=== PATIENT | male | born 1980 | race American Indian/Alaskan Native ===

== ENCOUNTER 2019-11-29 14:31 | Emergency (ER) | payer SELFPAY ==
--- NOTE | 2019-11-29 17:36 | XRay Report ---
CHEST 2 VIEWS INDICATION / CLINICAL INFORMATION: cough. COMPARISON: None available. FINDINGS: SUPPORT DEVICES: None. HEART / MEDIASTINUM: No significant abnormality. LUNGS / PLEURA: No significant pulmonary or pleural abnormality. No pneumothorax. ADDITIONAL FINDINGS: No significant additional findings. IMPRESSION: 1. No acute findings. Signer Name: Apple Robbins MD Signed: 11/29/2019 5:31 PM Workstation Name: [id number]
[2019-11-29 18:29] VITALS: BP 164/92
--- NOTE | 2019-11-29 18:34 | Emergency Department Report ---
- General Chief Complaint: Upper Respiratory Infection Stated Complaint: FEVER/SWEATING/HEADACHE Time Seen by Provider: 11/29/19 17:45 Source: patient Mode of arrival: Ambulatory Limitations: No Limitations - History of Present Illness Initial Comments: Patient is a 39-year-old male presents emergency room with complaints of viral- like symptoms that began a week ago. He has associated subjective fever, headache, cough, chills, nausea, one episode of vomiting a day, diarrhea. He denies any sore throat, ear pain, chest pain, shortness of breath, abdominal pain. He states that he has not taken anything for a fever today. He denies any sick contacts. He states that he did give his symptoms to other people in his home. He denies any recent travel. He states he is a non-smoker. He has not received COVID-19 testing. He denies any past medical history. Has an allergy to penicillin. ED Review of Systems ROS: Stated complaint: FEVER/SWEATING/HEADACHE Other details as noted in HPI Comment: All other systems reviewed and negative ED Past Medical Hx - Past Medical History Previous Medical History?: No Hx Arthritis: No ED Physical Exam - General Limitations: No Limitations General appearance: alert, in no apparent distress - Head Head exam: Present: atraumatic, normocephalic - Eye Eye exam: Present: normal appearance - ENT ENT exam: Present: normal orophraynx, mucous membranes moist, TM's normal tobi aterally, normal external ear exam - Respiratory Respiratory exam: Present: normal lung sounds bilaterally. Absent: respiratory distress, wheezes, rales, rhonchi, stridor, chest wall tenderness, accessory muscle use, decreased breath sounds, prolonged expiratory - Cardiovascular Cardiovascular Exam: Present: regular rate, normal rhythm, normal heart sounds. Absent: systolic murmur, diastolic murmur, rubs, gallop - Neurological Exam Neurological exam: Present: alert, oriented X3 - Psychiatric Psychiatric exam: Present: normal affect, normal mood - Skin Skin exam: Present: warm, dry, intact ED Course Vital Signs 11/29/19 11/29/19 14:52 18:28 Temperature 98.0 F Pulse Rate 65 61 Respiratory 18 16 Rate Blood Pressure 171/109 164/92 [Right] O2 Sat by Pulse 100 99 Oximetry ED Medical Decision Making - Lab Data Vital Signs 11/29/19 11/29/19 14:52 18:28 Temperature 98.0 F Pulse Rate 65 61 Respiratory 18 16 Rate Blood Pressure 171/109 164/92 [Right] O2 Sat by Pulse 100 99 Oximetry - Radiology Data Radiology results: report reviewed CHEST 2 VIEWS INDICATION / CLINICAL INFORMATION: cough. COMPARISON: None available. FINDINGS: SUPPORT DEVICES: None. HEART / MEDIASTINUM: No significant abnormality. LUNGS / PLEURA: No significant pulmonary or pleural abnormality. No pneumothorax. ADDITIONAL FINDINGS: No significant additional findings. IMPRESSION: 1. No acute findings. Signer Name: Apple Robbins MD Signed: 11/29/2019 5:31 PM Workstation Name: [id number] Transcribed By: Dictated By: Apple Robbins MD Electronically Authenticated By: Apple Robbins MD Signed Date/Time: 11/29/191730 DD/ 30 TD/TT: - Medical Decision Making Patient is a 39-year-old male presents emergency room with complaints of viral- like symptoms that began a week ago. He has associated subjective fever, headache, cough, chills, nausea, one episode of vomiting a day, diarrhea. He denies any sore throat, ear pain, chest pain, shortness of breath, abdominal pain. He states that he has not taken anything for a fever today. He denies any sick contacts. He states that he did give his symptoms to other people in his home. He denies any recent travel. He states he is a non-smoker. He has not received COVID-19 testing. He denies any past medical history. Has an allergy to penicillin. Initial vitals with elevated blood pressure which improved upon repeat. On exam breath sounds are clear bilaterally, no wheezing, no rales, no rhonchi, normal oropharynx, normal TMs and canals bilaterally. Chest x-ray ordered prior to my examination and shows 1. No acute findings. Symptoms appear most consistent with viral URI. Patient is presenting with the symptoms during COVID-19 pandemic, discussed the possibility of COVID-19 with patient, discussed strict return precautions, discussed outpatient testing, discussed self quarantine. Patient does not meet hospital criteria for admission or for hospital COVID-19 testing. Patient has no clinical signs of bacterial pneumonia or bronchitis. He has no clinical signs of dehydration. Discussed the elevation in patient's blood pressure during today's visit with patient, discussed the need for primary care follow-up, discussed low-sodium diet, discussed 30 to 60 minutes of aerobic exercise daily. Advised patient please increase your fluid intake over the next several days. May take Tylenol as needed for fever or body aches. May take [id number] cold symptom relief medication such as Mucinex or TheraFlu. Follow-up with a primary care doctor for reexamination. Return to emergency room immediately for any new or worsening symptoms including but not limited to difficulty breathing, shortness of breath, severe chest pain, unable to tolerate by mouth intake, etc. Please self quarantine for 2 weeks from the onset of your symptoms. Please do not go out in public. If you are around others at home please wear a mask. If you need to cough or sneeze please do so in a napkin and immediately throw it away and immediately wash your hands. Wash your hands frequently. Wipe everything down. Recommend for you to get COVID-19 testing, may have this done at primary care doctor, health department, [facility] testing center. Critical care attestation.: If time is entered above; I have spent that time in minutes in the direct care of this critically ill patient, excluding procedure time. ED Disposition Clinical Impression: Viral URI, Elevated blood pressure reading Disposition: DC-01 TO HOME OR SELFCARE Is pt being admited?: No Does the pt Need Aspirin: No Condition: Stable Instructions: Viral Syndrome (ED), COVID-19 Additional Instructions: please increase your fluid intake over the next several days. May take Tylenol as needed for fever or body aches. May take [id number] cold symptom relief medication such as Mucinex or TheraFlu. Follow-up with a primary care doctor for reexamination. Return to emergency room immediately for any new or worsening symptoms including but not limited to difficulty breathing, shortness of breath, severe chest pain, unable to tolerate by mouth intake, etc. Please self quarantine for 2 weeks from the onset of your symptoms. Please do not go out in public. If you are around others at home please wear a mask. If you need to cough or sneeze please do so in a napkin and immediately throw it away and immediately wash your hands. Wash your hands frequently. Wipe everything down. Recommend for you to get COVID-19 testing, may have this done at primary care doctor, health department, [facility] testing center. please follow up with a primary care doctor regarding the elevation in your blood pressure during today's visit, eat a low-sodium diet, incorporate 30 to 60 minutes of aerobic exercise daily. Referrals: PRIMARY CARE, [Primary Care Provider] - 2-3 Days DONNIE VINCENT MD [Staff Physician] - 2-3 Days [facility] [Provider Group] - 2-3 Days [facility], [LAB/CONTRACT] - 2-3 Days Forms: Work/School Release Form(ED) Time of Disposition: 18:35 Print Language: ESTONIAN
== END 2019-11-29 18:40 | disposition home or self-care (01) ==
LOC: ED 14:31
DX: J06.9 Acute upper respiratory infection, unspecified (principal); R03.0 Elevated blood-pressure reading, without diagnosis of hypertension; Z79.899 Other long term (current) drug therapy
CPT/HCPCS: 71046